=== PATIENT | female | born 1955 | race Two or more races ===

== ENCOUNTER 2017-04-07 10:02 | Emergency (ER) | payer SELFPAY ==
[2017-04-07 11:30] LABS: CALCIUM 9.4 mg/dL (8.5-10.1); CARBON DIOXIDE 27.4 mmol/L (21-32); CHLORIDE SERUM 105 mmol/L (98-107); CREATININE SERUM 0.9 mg/dL (0.6-1.0); GFR1 > 60 mL/min; GLUCOSE SERUM 109 mg/dL (74-106); SODIUM SERUM 141 mmol/L (136-145)
[2017-04-07 12:46] VITALS: BP 140/87
== END 2017-04-07 12:46 | disposition home or self-care (01) ==
LOC: ED 10:02
PROVIDERS: Emergency Medicine
DX: E03.9 Hypothyroidism, unspecified (principal)
CPT/HCPCS: J3010; Q0162